=== PATIENT | male | born 1960 | race Caucasian/White ===

== ENCOUNTER 2017-04-27 15:34 | Emergency (ER) | payer MEDICARE, MEDICAID ==
[~2017-04-27] VITALS: Ht 190.5 cm; Wt 102.1 kg
[~2017-04-27 15:34] MED LIST: MIRT45TA; Pantoprazole Sodium Sesquihydr PO
[2017-04-27 17:15] VITALS: BP 142/84
[2017-04-27 18:00] LABS: Urine Bilirubin Negative (Negative); Urine Blood Negative /uL (Negative); Urine Color Yellow (Yellow); Urine Glucose Normal (Normal); Urine Ketone Negative (Negative); Urine Nitrite Negative (Negative); Urine RBC <1 /hpf (0 - 3); Urine Urobilinogen Normal (Negative); Urine pH 6.5 (5.0-8.0)
== END 2017-04-27 18:37 | disposition home or self-care (01) ==
LOC: ER 15:39
DX: N43.3 Hydrocele, unspecified (principal); K21.9 Gastro-esophageal reflux disease without esophagitis; I10 Essential (primary) hypertension; Z87.442 Personal history of urinary calculi; Z98.890 Other specified postprocedural states; Z88.8 Allergy status to other drugs, medicaments and biological substances
CPT/HCPCS: 76870; 81001

== ENCOUNTER → 2020-05-08 | Outpatient (CLI) | payer MEDICARE, MEDICAID ==
[2020-05-08 12:45] LABS: Basophils # (auto) 0.1 10 ^3/uL (0-0.2); Basophils % (auto) 2.4 % (0.0-2.0); Eosinophils # (auto) 0.1 10 ^3/uL (0-0.8); Hematocrit 51.5 % (41.0-53.0); Hemoglobin 16.9 g/dL (13.5-17.5); Lymphocytes # (auto) 2.8 10 ^3/uL (0.4-5.4); Lymphocytes % (auto) 44.8 % (10.0-50.0); Mean Corpuscular Hemoglobin 30.1 pg (28.0-32.0); Mean Corpuscular Hgb Conc. 32.8 g/dL (32.0-36.0); Mean Corpuscular Volume 91.6 fL (80.0-100.0); Monocytes # (auto) 0.6 10 ^3/uL (0-1.3); Monocytes % (auto) 10.4 % (0.0-12.0); Neutrophils # (auto) 2.6 10 ^3/uL (1.6-8.6); Neutrophils % (auto) 41.4 % (37.0-80.0); Platelet Count (auto) 368 10^3/uL (140-450); Red Blood Cells 5.62 10^6/uL (4.5-5.90); Red Cell Distribution Width 14.4 % (11.8-14.3); White Blood Cell 6.2 10^3/uL (4.4-10.8)
[2020-05-08 12:57] LABS: BUN/Creatinine Ratio 7.5; Calcium 9.3 mg/dL (8.5-10.1)
[2020-05-08 12:58] LABS: INR 0.98 (0.9-1.15)
[2020-05-08 13:01] LABS: Bilirubin, Total 0.4 mg/dL (0.2-1.0)
[2020-05-08 13:06] LABS: Free T4 (Free Thyroxine) 1.11 ng/dL (0.89-1.76); Prostate Specific Antigen 0.96 ng/mL (0.0-4.0)
== END | disposition home or self-care (01) ==
LOC: LAB 12:09
PROVIDERS: ATTEND Internal Medicine
DX: Z01.811 Encounter for preprocedural respiratory examination (principal); K80.20 Calculus of gallbladder without cholecystitis without obstruction; I10 Essential (primary) hypertension; R06.02 Shortness of breath; Z12.5 Encounter for screening for malignant neoplasm of prostate; Z90.81 Acquired absence of spleen
CPT/HCPCS: 36415; 80053; 80061; 84153; 84439; 84443; 85025; 85610; 85652

== ENCOUNTER → 2021-07-26 | Outpatient (CLI) | payer MEDICARE, MEDICAID ==
[2021-07-26 14:31] LABS: Cholesterol 224 mg/dL (< 200); Triglycerides 222 mg/dL (< 150)
[2021-07-26 14:35] LABS: HDL Cholesterol 45 mg/dL (40-59); LDL Cholesterol 151 mg/dL (< 100)
== END | disposition home or self-care (01) ==
LOC: LAB 13:41
PROVIDERS: ATTEND Internal Medicine
DX: I10 Essential (primary) hypertension (principal); E78.00 Pure hypercholesterolemia, unspecified
CPT/HCPCS: 36415; 80061

== ENCOUNTER 2022-07-24 03:42 | Emergency (ER) | payer MEDICARE, MEDICAID | END 2022-07-24 04:35 | disposition left against medical advice (07) | LOC: ER 03:42 | DX: J01.90 Acute sinusitis, unspecified (principal); Z53.21 Procedure and treatment not carried out due to patient leaving prior to being seen by health care provider ==

== ENCOUNTER → 2023-09-19 | Outpatient (CLI) | payer MEDICARE, MEDICAID ==
[2023-09-19 12:06] LABS: Basophils # (auto) 0 10 ^3/uL (0-0.2); Basophils % (auto) 0.9 % (0.0-2.0); Eosinophils # (auto) 0 10 ^3/uL (0-0.8); Eosinophils % (auto) 0.2 % (0.0-7.0); Hematocrit 51.3 % (41.0-53.0); Hemoglobin 17.1 g/dL (13.5-17.5); Lymphocytes # (auto) 1.7 10 ^3/uL (0.4-5.4); Mean Corpuscular Hgb Conc. 33.3 g/dL (32.0-36.0); Mean Corpuscular Volume 90.4 fL (80.0-100.0); Monocytes # (auto) 0.6 10 ^3/uL (0-1.3); Monocytes % (auto) 11.6 % (0.0-12.0); Neutrophils # (auto) 2.9 10 ^3/uL (1.6-8.6); Neutrophils % (auto) 54.3 % (37.0-80.0); Nucleated Red Blood Cells % 0.1 %; Red Blood Cells 5.68 10^6/uL (4.5-5.90); Red Cell Distribution Width 14.5 % (11.8-14.3); White Blood Cell 5.3 10^3/uL (4.4-10.8)
[2023-09-19 12:09] LABS: Urine Bacteria NONE SEEN /hpf (None Seen); Urine Blood TRACE /uL (Negative); Urine Clarity Clear (Clear); Urine Color Yellow (Yellow); Urine Mucus FEW (None Seen); Urine Protein, UAD Negative (Negative); Urine Specific Gravity 1.024 (1.001-1.035); Urine Urobilinogen Normal (Negative); Urine WBC <1 /hpf (0 - 3)
[2023-09-19 12:35] LABS: Prostate Specific Antigen 1.13 ng/mL (0.0-4.0)
[2023-09-19 12:39] LABS: Alanine Aminotransferase 23 U/L (7-40); Albumin 4.7 g/dL (3.2-4.8); Alkaline Phosphatase 89 U/L (46-116); Anion Gap 8 (5-15); Aspartate Aminotransferase 17 U/L (13-40); BUN/Creatinine Ratio 11.7 (10.0-20.0); Blood Urea Nitrogen 14 mg/dL (9-23); Calcium 9.7 mg/dL (8.5-10.1); Carbon Dioxide 27 mmol/L (20-30); Chloride 104 mmol/L (98-107); Cholesterol 289 mg/dL (< 200); Free T4 (Free Thyroxine) 1.11 ng/dL (0.89-1.76); Glucose 111 mg/dL (74-106); HDL Cholesterol 49 mg/dL (40-59); LDL Cholesterol 229 mg/dL (< 100); Sodium 139 mmol/L (136-145)
[2023-09-19 12:40] LABS: Bilirubin, Total 0.5 mg/dL (0.2-1.0); Total Protein 7.6 g/dL (5.7-8.2)
[2023-09-19 13:04] LABS: Erythrocyte Sedimentation Rate 2 mm/hr (0-20)
[2023-09-19 13:15] LABS: Triglycerides 118 mg/dL (< 150)
== END | disposition home or self-care (01) ==
LOC: LAB 11:40
PROVIDERS: ATTEND Internal Medicine
DX: Z12.5 Encounter for screening for malignant neoplasm of prostate (principal); I10 Essential (primary) hypertension; R35.1 Nocturia
CPT/HCPCS: 36415; 80053; 80061; 81001; 84153; 84439; 84443; 85025; 85652

== ENCOUNTER → 2023-11-27 | Outpatient (CLI) | payer MEDICARE, MEDICAID ==
[2023-11-27 13:00] LABS: Alanine Aminotransferase 33 U/L (7-40); Aspartate Aminotransferase 28 U/L (13-40); Cholesterol 172 mg/dL (< 200); HDL Cholesterol 51 mg/dL (40-59); LDL Cholesterol 100 mg/dL (< 100); Triglycerides 154 mg/dL (< 150)
== END | disposition home or self-care (01) ==
LOC: LAB 12:16
PROVIDERS: ATTEND Internal Medicine
DX: E78.00 Pure hypercholesterolemia, unspecified (principal)
CPT/HCPCS: 36415; 80061; 84450; 84460

== ENCOUNTER → 2025-04-21 | Outpatient (CLI) | payer MEDICARE, MEDICAID ==
[2025-04-21 12:03] LABS: Prostate Specific Antigen 1.1 ng/mL (0.0-4.0)
[2025-04-21 12:04] LABS: Alanine Aminotransferase 12 U/L (7-40); Albumin 4.4 g/dL (3.2-4.8); Alkaline Phosphatase 88 U/L (46-116); Anion Gap 8 (5-15); BUN/Creatinine Ratio 9.6 (10.0-20.0); Blood Urea Nitrogen 10 mg/dL (9-23); Calcium 10.0 mg/dL (8.7-10.4); Carbon Dioxide 26 mmol/L (20-31); Chloride 106 mmol/L (98-107); Glucose 95 mg/dL (74-106); HDL Cholesterol 45 mg/dL (40-59); Potassium 4.0 mmol/L (3.5-5.1); Sodium 140 mmol/L (136-145); Total Protein 6.9 g/dL (5.7-8.2)
[2025-04-21 12:07] LABS: Free T4 (Free Thyroxine) 1.09 ng/dL (0.89-1.76)
[2025-04-21 12:20] LABS: Bilirubin, Total 0.3 mg/dL (0.2-1.0); Cholesterol 228 mg/dL (< 200); Triglycerides 237 mg/dL (< 150)
[2025-04-21 12:27] LABS: Urine Protein, UAD TRACE (Negative)
== END | disposition home or self-care (01) ==
LOC: LAB 11:11
PROVIDERS: ATTEND Internal Medicine
DX: I10 Essential (primary) hypertension (principal); K57.92 Diverticulitis of intestine, part unspecified, without perforation or abscess without bleeding; Z79.899 Other long term (current) drug therapy
CPT/HCPCS: 80053; 80061; 81001; 84153; 84439; 84443; 86141

== ENCOUNTER 2025-07-28 09:24 | Inpatient (IN) | payer MEDICARE, MEDICAID ==
[~2025-07-28] VITALS: Ht 190.5 cm; Wt 101.0 kg
--- NOTE | 2025-07-28 10:11 | ED.PDOC ---
GI ASSESSMENT HPI Comments 64 y/o M, with PMHx of GERD, HTN, and kidney stones presents to the ED for CC of abdominal pain. Patient states, he was sent by for admissions d/t possible necrotizing pancreatitis. Patient reports, to have been experiencing symptoms of abdominal pain with associated nausea, vomiting, and poor appetite. Patient further relays, he was previously seen at [facility] for SS and eloped from the facility d/t care x2days ago. From patient's paper work, it is reported that patient has a 7mm kidney stone in the right kidney and was Dx: with acute pancreatitis. Patient denies hematemesis, melena, fatigue, weakness, fever, palpations, or chest pain. No other associated symptoms, modifi ers, recent injuries or sick contacts are present at this time. Chief Complaint: Abdominal Pain Time Seen by MD: 09:45 Primary Care Provider: [place] Reviewed Notes: Nurses Notes, Medications, Allergies Allergies: Coded Allergies: Benzyl Alcohol (Verified Adverse Reaction, Severe, FACIAL TWITCHING, 11/04/10) Prochlorperazine (Verified Adverse Reaction, Severe, FACIAL TWITCHING, 11/04/10) Saccharin (Verified Adverse Reaction, Severe, FACIAL TWITCHING, 11/04/10) Home Meds Active Scripts [Pantoprazole Sodium Sesquihydr] 40 MG TB No Conflict Check, 40 MG PO BID, #60 Prov:ALAYNA FIGUEREDO MD 05/15/16 Reported Medications Mirtazapine (Mirtazapine Oral Disintegrating Tablet) 30 Mg Tab, TAB PO 07/28/25 Alfuzosin Hydrochloride (ALFUZOSIN HCL ER) 10 Mg Tab, 1 TAB PO DAILY 07/28/25 Losartan Potassium (Losartan Potassium) 100 Mg Tab, 1 TAB PO DAILY 07/28/25 Mirtazapine (Remeron) 45 Mg Tab, HS 06/22/12 Information Source: Patient Mode of Arrival: Ambulatory Timing: Weeks Duration: Since onset Prehospital treatment: None Vomitus: Watery Stool: Normal Severity: Moderate Recent: None Recent Hx of: None Pain Location: Diffuse Modifying Factors: Nothing Associated sign and symptoms: Nausea, Vomiting, Abdominal Pain Past Medical History PAST MEDICAL HISTORY: GERD, HTN, Kidney Stones Family History Family History: Unobtainable Social History Smoker: Non-Smoker Alcohol: Occasionally Drugs: Denies Drug Use Lives In: Home Constitutional: denies: chills, diaphoresis, fatigue, fever, malaise, sweats, weakness, others EENTM: denies: blurred vision, double vision, ear bleeding, ear discharge, ear drainage, ear pain, ear ringing, eye pain, eye redness, hearing loss, mouth pain, mouth swelling, nasal discharge, nose bleeding, nose congestion, nose pain, photophobia, tearing, throat pain, throat swelling, voice changes, others Respiratory: denies: cough, hemoptysis, orthopnea, SOB at rest, shortness of breath, SOB with excertion, stridor, wheezing, others Cardiovascular: denies: chest pain, dizzy spells, diaphoresis, Dyspnea on exertion, edema, irregular heart beat, left arm pain, lightheadedness, palpitations, PND, syncope, others Gastrointestinal: reports: abdominal pain, nausea, vomiting; denies: abdomen distended, blood streaked bowels, constipated, diarrhea, dysphagia, difficulty swallowing, hematemesis, melena, poor appetite, poor fluid intake, rectal bleeding, rectal pain, others Genitourinary: denies: burning, dysuria, flank pain, frequency, hematuria, incontinence, penile discharge, penile sore, pain, testicle pain, testicle swelling, urgency, others Neurological: denies: dizziness, fainting, headache, left sided numbness, left sided weakness, numbness, paresthesia, pre-existing deficit, right sided numbness, right sided weakness, seizure, speech problems, tingling, tremors, weakness, others Musculoskeletal: denies: back pain, gout, joint pain, joint swelling, muscle pain, muscle stiffness, neck pain, others Integumetry: denies: bruises, change in color, change in hair/nails, dryness, laceration, lesions, lumps, rash, wounds, others Allergic/Immunocompromised: denies: Difficulty Healing, Frequent Infections, Hives, Itching, others Hematologic/Lymphatic: denies: anemia, blood clots, easy bleeding, easy bruising, swollen glands, others Endocrine: denies: excessive hunger, excessive sweating, excessive thirst, excessive urination, flushing, intolerance to cold, intolerance to heat, unexplained weight gain, unexplained weight loss, others Psychiatric: denies: anxiety, bipolar disorder, depression, hopeless, panic disorder, schizophrenia, sleepless, suicidal, others All Other Systems: Reviewed and Negative Physical Exam General Appearance: No Apparent Distress, Normal HEENT: Normal ENT Inspection, Pharynx Normal Neck: Full Range of Motion, Non-Tender, Normal, Normal Inspection Respiratory: Chest Non-Tender, Lungs Clear, No Accessory Muscle Use, No Respiratory Distress, Normal Breath Sounds Cardiovascular: No Edema, No Murmur, No Gallop, Normal Peripheral Pulses, Regular Rate/Rhythm Breast Exam: Deferred Gastrointestinal: No Organomegaly, Non Tender, No Pulsatile Mass, Normal Bowel Sounds, Soft Genitalia: Deferred Pelvic: Deferred Rectal: Deferred Extremities: No calf tenderness, Normal capillary refill, Normal inspection, Normal range of motion, Non-tender, No pedal edema Musculoskeletal : Apperance: Normal Neurologic: Alert, slag skimmer II-XII nml as Tested, No Motor Deficits, Normal Affect, Normal Mood, No Sensory Deficits Cerebellar Function: Normal Reflexes: Normal Skin: Dry, Normal Color, Warm Lymphatic: No Adenopathy EKG EKG : Pulse Rate (adult): 86 [place]: Normal Cardiac Rhythm: NSR Block: None Hypertrophy: LAE ST: Normal Was a procedure done? Was a procedure done?: No GI differential Dx Differential Diagnosis: Pancreatitis, Urolithiasis X-Ray, Labs, Meds, VS Vital Signs Date Time Temp Pulse Resp B/P (MAP) Pulse Ox O2 Delivery O2 Flow Rate FiO2 07/28/25 10:12 86 07/28/25 09:35 86 07/28/25 09:24 99.1 91 18 157/89 95 99.1 Lab Test 07/28/25 09:48 Range/Units White Blood Count 12.5 H 4.4-10.8 10^3/uL Red Blood Count 5.04 4.5-5.90 10^6/uL Hemoglobin 15.1 13.5-17.5 g/dL Hematocrit 45.1 41.0-53.0 % Mean Corpuscular Volume 89.5 80.0-100.0 fL Mean Corpuscular Hemoglobin 29.9 28.0-32.0 pg Mean Corpuscular Hemoglobin Concent 33.4 32.0-36.0 g/dL Red Cell Distribution Width 13.9 11.8-14.3 % Platelet Count 285 140-450 10^3/uL Mean Platelet Volume 7.4 6.9-10.8 fL Neutrophils (%) (Auto) 79.0 37.0-80.0 % Lymphocytes (%) (Auto) 9.9 L 10.0-50.0 % Monocytes (%) (Auto) 10.5 0.0-12.0 % Eosinophils (%) (Auto) 0.3 0.0-7.0 % Basophils (%) (Auto) 0.3 0.0-2.0 % Neutrophils # (Auto) 9.9 H 1.6-8.6 10 ^3/uL Lymphocytes # (Auto) 1.2 0.4-5.4 10 ^3/uL Monocytes # (Auto) 1.3 0-1.3 10 ^3/uL Eosinophils # (Auto) 0 0-0.8 10 ^3/uL Basophils # (Auto) 0 0-0.2 10 ^3/uL Nucleated Red Blood Cells 0.1 % Sodium Level 142 136-145 mmol/L Potassium Level 3.3 L 3.5-5.1 mmol/L Chloride Level 104 98-107 mmol/L Carbon Dioxide Level 27 20-31 mmol/L Anion Gap 11 5-15 Blood Urea Nitrogen 10 9-23 mg/dL Creatinine 0.95 0.700-1.30 mg/dL Glomerular Filtration Rate Calc 90 >90 mL/min BUN/Creatinine Ratio 10.5 10.0-20.0 Serum Glucose 105 74-106 mg/dL Lactic Acid Level 1.0 0.4-2.0 mmol/L Calcium Level 9.0 8.7-10.4 mg/dL Total Bilirubin 0.7 0.2-1.0 mg/dL Direct Bilirubin 0.3 <0.3 mg/dL Aspartate Amino Transferase (AST) 54 H 13-40 U/L Alanine Aminotransferase (ALT) 36 7-40 U/L Alkaline Phosphatase 122 H 46-116 U/L Total Protein 6.6 5.7-8.2 g/dL Albumin 4.0 3.2-4.8 g/dL Lipase 28 12-53 U/L CA 19-9 Antigen <2 0-35 U/mL Microbiology Date/Time Source Procedure Growth Status 07/28/25 09:52 Blood Blood Culture - Preliminary NO GROWTH AFTER 48 HOURS OF INCUBATION. Resulted 07/28/25 09:47 Blood Blood Culture - Preliminary NO GROWTH AFTER 48 HOURS OF INCUBATION. Resulted Time of 1ST Reevaluation: 10:15 Reevaluation 1ST: Unchanged Patient Education/Counseling: Diagnosis, Treatment Family Education/Counseling: No Family Present SEPSIS Sepsis Screen Date sepsis recognized/suspect: Jul 28, 2025 Time Sepsis recognized/suspect: 925 Recent Procedure: No Respiratory Rate >20: No Heart Rate >90: Yes Temp<36 C (96.8 F) or >38.3 C: No SBP <90 or MAP <65 mmHG: No New Acute Mental Status Change: No Is the patient on CPAP, BIPAP,: No Physician Orders Ct Ab Pel With Iv Con Only (07/28/25 10:20) Blood Culture (07/28/25 10:22) Electrocardigram (07/28/25 10:23) Vital Signs Date Time Temp Pulse Resp B/P (MAP) Pulse Ox O2 Delivery O2 Flow Rate FiO2 07/28/25 10:12 86 07/28/25 09:35 86 07/28/25 09:24 99.1 91 18 157/89 95 99.1 Laboratory Tests Test 07/28/25 09:48 Lactic Acid Level 1.0 mmol/L (0.4-2.0) White Blood Count 12.5 10^3/uL (4.4-10.8) H Departure 1 Departure Time of Disposition: 05:09 (Patient presented with abdominal pain that was concerning for possible appendicits, gastritis, cholecystitis, colitis, gastroenteritis, sbo, or orther possible surgical emergency. Data: 1. I ordered and reviewed the result of at least 3 labs including a CBC, BMP, and Urinalysis. 2. I independently interpreted the following tests: CT Abdomen and Pelvis is concerning for necrotizing pancreatitis .Risk:This patient has a high risk of morbidity due to further diagnostic testing or treatment and may suffer from an acute abdominal process disorder. Workup reveals necrotizing pancreatitis and patient should be admitted for further workup. and possible expert consultation. ) Impression: Primary Impression: Acute necrotizing pancreatitis Additional Impression: Intractable abdominal pain Disposition: 09 ADMITTED INPATIENT Admit to: Med Surg Condition: Serious Critical Care Note Critical Care Time?: Yes Critical care comment: Intractable abdominal pain Authorized and Performed by: Ariel Hudson MD Total critical care time: Approximately 39 minutes Due to a high probability of clinically significant, life threatening deterioration, the patient required my highest level of preparedness to intervene emergently and I personally spent this critical care time directly and personally managing the patient. This critical care time included obtaining a history; examining the patient; pulse oximetry; ordering and review of studies; arranging urgent treatment with development of a management plan; evaluation of patient's response to treatment; frequent reassessment; and, discussions with other providers. This critical care time was performed to assess and manage the high probability of imminent, life-threatening deterioration that could result in multi-organ failure. It was exclusive of separately billable procedures and treating other patients and teaching time. Please see my other sections and the rest of the note for further information on patient assessment and treatment. Stability Stability form required: No Heart Score Heart Score: Heart Score Response (Comments) Value History N/A 0 EKG N/A 0 Age N/A 0 Risk Factors N/A 0 Troponin N/A 0 Total 0 I personally scribed for ARIEL HUDSON MD ([email or web address]) on 07/28/25 at 10:11. Electronically submitted by Hailey Gaspar ([email or web address]). I personally scribed for ARIEL HUDSON MD ([email or web address]) on 07/28/25 at 10:12. Electronically submitted by Hailey Gaspar ([email or web address]). ARIEL HUDSON MD Jul 28, 2025 10:11
--- NOTE | 2025-07-28 10:26 | ECG ---
[facility] Test Date: 2025-07-28 Test Time: 09:35:33 Pat Name: NEW MAHMOOD Department: ED Room: 0212 Gender: M Crystallographer: RACHANA : 1960 Requested By: ARIEL GODOY Order Number: [id number] Reading MD: Oscar Roger Measurements Intervals [place] Rate: 86 P: 49 CO: 153 QRS: 2 QRSD: 107 T: 58 QT: 392 QTc: 469 Interpretive Statements Sinus rhythm Probable left atrial enlargement RSR' in V1 or V2, probably normal variant Electronically Signed On 07-30-2025 20:36:06 PDT by Oscar Roger Please click the below link to view image of tracing.
[2025-07-28 10:27] LABS: Hematocrit 45.1 % (41.0-53.0); Hemoglobin 15.1 g/dL (13.5-17.5); Mean Corpuscular Hemoglobin 29.9 pg (28.0-32.0); Mean Corpuscular Volume 89.5 fL (80.0-100.0); Nucleated Red Blood Cells % 0.1 %
[2025-07-28 10:36] LABS: Anion Gap 11 (5-15); Carbon Dioxide 27 mmol/L (20-31); Chloride 104 mmol/L (98-107); Sodium 142 mmol/L (136-145)
[2025-07-28 10:44] LABS: Potassium 3.3 mmol/L (3.5-5.1)
[2025-07-28 11:01] LABS: BUN/Creatinine Ratio 10.5 (10.0-20.0); Blood Urea Nitrogen 10 mg/dL (9-23)
[2025-07-28 11:02] LABS: Calcium 9.0 mg/dL (8.7-10.4); Glucose 105 mg/dL (74-106)
[2025-07-28 12:10] LABS: Albumin 4.0 g/dL (3.2-4.8); Bilirubin, Total 0.7 mg/dL (0.2-1.0); Lipase 28.0 U/L (12-53); Total Protein 6.6 g/dL (5.7-8.2)
[2025-07-28 12:11] LABS: Alkaline Phosphatase 122.0 U/L (46-116)
--- NOTE | 2025-07-28 12:21 | DVH ---
Exam: CT CT AB PEL WITH IV CON ONLY History: abdominal pain, necrotizing pancreatitis COMPARISON: None Technique: Multidetector spiral CT of the abdomen and pelvis was performed from lung bases to pubic s ymphysis. Intravenous contrast was administered during this examination. Portal venous imaging was o btained. Axial, coronal and sagittal multiplanar reformats were performed by the technologist on a [employer] workstation. Radiation Dose : 1. Abdomen/Pelvis: CTDIvol 13.32 mGy, DLP 702.15 mGy*cm. CONTRAST: Type of contrast: Omnipaque 350 Contrast injected: 100 ml Findings: Lung Bases: Trace bilateral pleural effusions with bibasilar atelectatic changes. Liver: The liver is normal in size. No focal lesions. Normal hepatic vascular enhancement. Gallbladder and biliary Tree: Unremarkable Spleen: Multiple small splenules. Pancreas: Heterogeneous enlargement of the pancreatic head, neck, uncinate process, and body. Multipl e areas of diminished enhancement throughout the pancreatic neck, head, and uncinate process. Mild to moderate generalized peripancreatic edema. No focal fluid collections. Adrenal Glands: Unremarkable Kidneys: Nonobstructing right middle renal calculus measuring 6 mm. No hydronephrosis. Bladder: Unremarkable Bowel: The stomach is grossly normal in appearance. Small bowel and colon are normal in caliber and d istribution. The appendix is not visualized; however, no secondary findings of acute appendicitis terry ntified. Colonic diverticulosis. Ascites: Absent Lymphadenopathy: No mesenteric, retroperitoneal or periportal lymphadenopathy. Abdominal wall and Mesentery: Unremarkable. Vasculature: SMV appears slightly attenuated as of course through the pancreas. No clear thrombus is seen however. Pelvic Organs: Unremarkable Musculoskeletal: No aggressive focal bony lesions, acute fractures or dislocation. IMPRESSION: Findings are consistent with necrotizing pancreatitis with diminished enhancement throughout the head , uncinated process, and neck. Radiation optimization: All CT scans at this facility use at least one of these dose optimization chris hniques: automated exposure control mA and/or kV adjustment per patient size (includes targeted exam s where dose is matched to clinical indication) or iterative reconstruction.
[2025-07-28 12:24] LABS: Alanine Aminotransferase 36.0 U/L (7-40); Bilirubin, Direct 0.3 mg/dL (<0.3)
--- NOTE | 2025-07-28 12:58 | DVHHP2 ---
History of Present Illness Reason for Visit: Abdominal pain History of Present Illness Shine Parry is a 64-year-old male with past medical history of appendectomy, splenectomy, closed head injury in 1988, bilateral knee surgery, GERD, hypertension, and nephrolithiasis who presents to the ED with abdominal pain, nausea, vomiting, and poor appetite that started 2 weeks ago. Patient reports that he has not been eating since last Friday. He reports that the abdominal pain is 10/10 burning and constant. He also reports that there are no triggering or alleviating factors. Patient reported that this morning he took 2 (500mg) of Tylenol to help with the pain. Patient reports that he was advised by his PCP Dr. Cristino Powell to come in immediately this morning. Patient reports that he was recently at [facility] 2 days ago was told that he needed emergent surgery for his kidney stone in the right side, which never happened so he left AMA. Patient brought in documents from [facility] where he got an MRCP which shows that he has a 7 mm nonobstructing right kidney stone. Patient also reports that while he was at [facility] he was advised not to eat or drink anything. Patient denies any recent trauma or injury, recent sick contacts, recent ingestion of spoiled food, recent travels, chest pain, shortness of breath, fever, chills, lightheadedness, weakness, dizziness, diarrhea, or urinary symptoms. Cardiovascular: HTN GI: GERD Past Medical History Nephrolithiasis Past Surgical History: Appendectomy, Other (Splenectomy and bilateral knee surgery) Family History: None Smoke: No ALCOHOL: none Drugs: None Lives: Alone Domestic Violence: Neg Review of Systems Gastrointestinal: Nausea, Vomiting, Abdominal Pain Allergies: Coded Allergies: Benzyl Alcohol (Verified Adverse Reaction, Severe, FACIAL TWITCHING, 11/04/10) Prochlorperazine (Verified Adverse Reaction, Severe, FACIAL TWITCHING, 11/04/10) Saccharin (Verified Adverse Reaction, Severe, FACIAL TWITCHING, 11/04/10) Exam Vital Signs Vital Signs Date Time Temp Pulse Resp B/P (MAP) Pulse Ox O2 Delivery O2 Flow Rate FiO2 07/28/25 10:12 86 07/28/25 09:24 99.1 18 157/89 95 99.1 General Appearance: Alert, Oriented X3, Cooperative, No acute distress HEENT: Atraumatic, PERRLA, EOMI, Mucous membr. moist/pink Respiratory: Normal air movement Cardiovascular: Regular rate, Normal S1, Normal S2 Abdominal: Soft Extremities: No clubbing, No cyanosis Neuro: Normal gait, Normal speech, Strength at 5/5 X4 ext, Normal tone, Sensation intact Psych/Mental Status: Mental status NL, Mood NL Labs/Xrays Labs Test 07/28/25 09:48 Range/Units White Blood Count 12.5 H 4.4-10.8 10^3/uL Red Blood Count 5.04 4.5-5.90 10^6/uL Hemoglobin 15.1 13.5-17.5 g/dL Hematocrit 45.1 41.0-53.0 % Mean Corpuscular Volume 89.5 80.0-100.0 fL Mean Corpuscular Hemoglobin 29.9 28.0-32.0 pg Mean Corpuscular Hemoglobin Concent 33.4 32.0-36.0 g/dL Red Cell Distribution Width 13.9 11.8-14.3 % Platelet Count 285 140-450 10^3/uL Mean Platelet Volume 7.4 6.9-10.8 fL Neutrophils (%) (Auto) 79.0 37.0-80.0 % Lymphocytes (%) (Auto) 9.9 L 10.0-50.0 % Monocytes (%) (Auto) 10.5 0.0-12.0 % Eosinophils (%) (Auto) 0.3 0.0-7.0 % Basophils (%) (Auto) 0.3 0.0-2.0 % Neutrophils # (Auto) 9.9 H 1.6-8.6 10 ^3/uL Lymphocytes # (Auto) 1.2 0.4-5.4 10 ^3/uL Monocytes # (Auto) 1.3 0-1.3 10 ^3/uL Eosinophils # (Auto) 0 0-0.8 10 ^3/uL Basophils # (Auto) 0 0-0.2 10 ^3/uL Nucleated Red Blood Cells 0.1 % Sodium Level 142 136-145 mmol/L Potassium Level 3.3 L 3.5-5.1 mmol/L Chloride Level 104 98-107 mmol/L Carbon Dioxide Level 27 20-31 mmol/L Anion Gap 11 5-15 Blood Urea Nitrogen 10 9-23 mg/dL Creatinine 0.95 0.700-1.30 mg/dL Glomerular Filtration Rate Calc 90 >90 mL/min BUN/Creatinine Ratio 10.5 10.0-20.0 Serum Glucose 105 74-106 mg/dL Lactic Acid Level 1.0 0.4-2.0 mmol/L Calcium Level 9.0 8.7-10.4 mg/dL Total Bilirubin 0.7 0.2-1.0 mg/dL Direct Bilirubin 0.3 <0.3 mg/dL Aspartate Amino Transferase (AST) 54 H 13-40 U/L Alanine Aminotransferase (ALT) 36 7-40 U/L Alkaline Phosphatase 122 H 46-116 U/L Total Protein 6.6 5.7-8.2 g/dL Albumin 4.0 3.2-4.8 g/dL Lipase 28 12-53 U/L Exam: CT CT AB PEL WITH IV CON ONLY History: abdominal pain, necrotizing pancreatitis COMPARISON: None Technique: Multidetector spiral CT of the abdomen and pelvis was performed from lung bases to pubic symphysis. Intravenous contrast was administered during this examination. Portal venous imaging was obtained. Axial, coronal and sagittal multiplanar reformats were performed by the technologist on a separate workstation. Radiation Dose : 1. Abdomen/Pelvis: CTDIvol 13.32 mGy, DLP 702.15 mGy*cm. CONTRAST: Type of contrast: Omnipaque 350 Contrast injected: 100 ml Findings: Lung Bases: Trace bilateral pleural effusions with bibasilar atelectatic changes. Liver: The liver is normal in size. No focal lesions. Normal hepatic vascular enhancement. Gallbladder and biliary Tree: Unremarkable Spleen: Multiple small splenules. Pancreas: Heterogeneous enlargement of the pancreatic head, neck, uncinate process, and body. Multiple areas of diminished enhancement throughout the pancreatic neck, head, and uncinate process. Mild to moderate generalized peripancreatic edema. No focal fluid collections. Adrenal Glands: Unremarkable Kidneys: Nonobstructing right middle renal calculus measuring 6 mm. No hydronephrosis. Bladder: Unremarkable Bowel: The stomach is grossly normal in appearance. Small bowel and colon are normal in caliber and distribution. The appendix is not visualized; however, no secondary findings of acute appendicitis identified. Colonic diverticulosis. Ascites: Absent Lymphadenopathy: No mesenteric, retroperitoneal or periportal lymphadenopathy. Abdominal wall and Mesentery: Unremarkable. Vasculature: SMV appears slightly attenuated as of course through the pancreas. No clear thrombus is seen however. Pelvic Organs: Unremarkable Musculoskeletal: No aggressive focal bony lesions, acute fractures or dislocation. IMPRESSION: Findings are consistent with necrotizing pancreatitis with diminished enhancement throughout the head, uncinated process, and neck. SEPSIS Sepsis Screen Date sepsis recognized/suspect: Jul 28, 2025 Time Sepsis recognized/suspect: 925 Recent Procedure: No Respiratory Rate >20: No Heart Rate >90: Yes Temp<36 C (96.8 F) or >38.3 C: No SBP <90 or MAP <65 mmHG: No New Acute Mental Status Change: No Is the patient on CPAP, BIPAP,: No Physician Orders Urinalysis (07/28/25 09:29) Ct Ab Pel With Iv Con Only (07/28/25 10:20) Blood Culture (07/28/25 10:22) Morphine Sulfate Injection (07/28/25 12:45) Ondansetron Hcl (Zofran) (07/28/25 12:45) Sodium Chloride 0.9% (07/28/25 12:45) Vital Signs Date Time Temp Pulse Resp B/P (MAP) Pulse Ox O2 Delivery O2 Flow Rate FiO2 07/28/25 10:12 86 07/28/25 09:35 86 07/28/25 09:24 99.1 91 18 157/89 95 99.1 Laboratory Tests Test 07/28/25 09:48 Lactic Acid Level 1.0 mmol/L (0.4-2.0) White Blood Count 12.5 10^3/uL (4.4-10.8) H Assessment/Plan Assessment/Plan Assessment Intractable abdominal pain likely due to necrotizing pancreatitis Leukocytosis likely due to necrotizing pancreatitis Hypokalemia Transaminitis 7 mm nonobstructing right kidney stone on patient's MRCP report History of GERD History of hypertension History of nephrolithiasis History of appendectomy History of splenectomy History of closed head injury 1988 History of bilateral knee surgery Plan Admit to med surge Antiemetics Pain management Replete lytes CT abdomen and pelvis noted NS 1 L given ED EKG Lipase level Blood cultures Lactic level noted Hepatic panel UA UDS IV antibiotics-meropenem NPO IV fluids Home medications reconciled DVT prophylaxis-SCDs PUD prophylaxis-PPIs Discussed plan of care with patient and nurse General surgery consulted - ED MD spoke with Dr. Wilcox [id number] Preventive counseling healthy eating habits, physical activity, and regular checkups Plan discussed with: Patient Date of Service: Jul 28, 2025 Billing Provider: ALEXSANDER DUMONT Common Visit Codes: 55266-[id number] INP/OBS CARE (HIGH) Secondary Visit Codes: [id number] COUNSELING IND ALEXSANDER DUMONT Jul 28, 2025 12:58
[2025-07-28] MEDS ORDERED: ACETAMINOPHEN 325 MG TAB PO PRN (13:15)
[2025-07-28] MEDS ORDERED: PANTOPRAZOLE 40 MG/10 ML VIAL INJ IV SCH (13:15)
[2025-07-28] MEDS ORDERED: ONDANSETRON HCL 4 MG/2 ML VIAL IV PRN (13:15)
[2025-07-28] MEDS ORDERED: MORPHINE SULFATE 4 MG/ML SYR/VIAL IV PRN (13:45)
[2025-07-28] MEDS: MORPHINE SULFATE 4 MG/ML SYR/VIAL IV ONE (14:43)
[2025-07-28] MEDS: POTASSIUM CHL 20 Meq TABLET PO ONE (14:44)
[2025-07-28] MEDS: PANTOPRAZOLE 40 MG/10 ML VIAL INJ IV SCH (14:44)
[2025-07-28] MEDS: MEROPENEM 1GM IVPB 50 ML IV SCH (14:44)
[2025-07-28] MEDS: ONDANSETRON HCL 4 MG/2 ML VIAL IV ONE (14:44)
[2025-07-28] MEDS: SODIUM CHLORIDE 0.9% 1,000 ML IV ONE (14:45)
[2025-07-28] MEDS: IOHEXOL 300 MG/ML 100ML BOTTLE IJ ONE (14:45)
[2025-07-28 15:06] VITALS: PULSE 90; RESP 17; O2SAT 97
[2025-07-28] MEDS: SODIUM CHLORIDE 0.9% 1,000 ML IV SCH (15:13)
[2025-07-28] MEDS ORDERED: ALFU1TAB15 PO (15:30)
[2025-07-28] MEDS ORDERED: MIRT1TAB39 PO (15:30)
[2025-07-28] MEDS ORDERED: LOSA-535 PO (15:30)
[2025-07-28] MEDS: TAMSULOSIN HYDROCHLORIDE 0.4 MG CAP PO SCH (18:55)
[2025-07-28 19:00] VITALS: PULSE 81; RESP 22; O2SAT 94
[2025-07-28 21:43] LABS: Urine Protein, UAD 1+ (Negative)
[2025-07-28 21:51] LABS: Amphetamine Screen, Urine Neg (NEGATIVE); Barbiturate Scree,Urine Neg (NEGATIVE); Benzodiazephine Screen, Urine Neg (NEGATIVE); Cannabinoid Screen, Urine Neg (NEGATIVE); Cocaine Screen, Urine Neg (NEGATIVE); Opiate Scree,Urine Pos (NEGATIVE); Phencyclidine Screen, Urine Neg (NEGATIVE)
[2025-07-28] MEDS ORDERED: PANTOPRAZOLE SODIUM SESQUIHYDR PO SCH (22:00)
--- NOTE | 2025-07-28 22:28 | DVHINCON2 ---
Consultation - Surgical Date Seen: Jul 28, 2025 Referring Physician Reason for Consultation Necrotizing pancreatitis History of Present Illness History of Present Illness Mr. Oliva is a 64-year-old male who presented to the ED due to epigastric abdominal pain that radiates to the back. Pain has been present since Friday, and on Friday he presented to [facility] and was found to have necrotizing pancreatitis. Patient left AMA from [place], when home but could not tolerate the pain, so he decided to call his PCP and PCP advised him to come to the hospital. Patient continues to have the abdominal pain and states he has not been eating since Friday due to the pain. Denies any nausea or vomiting. Has a associated subjective fevers. He has had pancreatitis in the past, 1 year ago. Denies any weight loss, acholic stools, yellowing of eyes. Past Medical/Surgical History Past Medical/Surgical History PMH pancreatitis, TBI, basilar skull fracture PSH laparoscopic appendectomy, exploratory laparotomy with splenectomy Family and Social History Family and Social History Family history noncontributory Allergies and medications Allergies: Coded Allergies: Benzyl Alcohol (Verified Adverse Reaction, Severe, FACIAL TWITCHING, 11/04/10) Prochlorperazine (Verified Adverse Reaction, Severe, FACIAL TWITCHING, 11/04/10) Saccharin (Verified Adverse Reaction, Severe, FACIAL TWITCHING, 11/04/10) Home Meds Active Scripts [Pantoprazole Sodium Sesquihydr] 40 MG TB No Conflict Check, 40 MG PO BID, #60 Prov:ALAYNA FIGUEREDO MD 05/15/16 Reported Medications Mirtazapine (Mirtazapine Oral Disintegrating Tablet) 30 Mg Tab, TAB PO 07/28/25 Alfuzosin Hydrochloride (ALFUZOSIN HCL ER) 10 Mg Tab, 1 TAB PO DAILY 07/28/25 Losartan Potassium (Losartan Potassium) 100 Mg Tab, 1 TAB PO DAILY 07/28/25 Mirtazapine (Remeron) 45 Mg Tab, HS 06/22/12 Review of systems Review of Systems: Deferred Examination Vital signs Vital Signs Date Time Temp Pulse Resp B/P (MAP) Pulse Ox O2 Delivery O2 Flow Rate FiO2 07/28/25 19:00 81 22 94 Room Air* 0 21 07/28/25 19:00 168/99 (122) 07/28/25 15:14 98.9 98.9 Medications Current Medications Medications (Trade) Dose Ordered Sig/Efrain Route PRN Reason Start Time Stop Time Status Last Admin Meropenem 50 ml @ 17 mls/hr Q8HR IV 07/28/25 14:00 07/28/25 14:44 Sodium Chloride 1,000 ml @ 100 mls/hr Q10H IV 07/28/25 13:15 07/28/25 15:13 Acetaminophen/ Hydrocodone Bitart ([place] 5/325MG Tab) 1 tab Q4HP PRN PO MODERATE PAIN (4-6 PAIN SCALE) 07/28/25 13:15 Ondansetron HCl (Zofran) 4 mg Q4HP PRN IV NAUSEA / VOMITING 07/28/25 13:15 Acetaminophen (Tylenol Tablet) 650 mg Q6HP PRN PO PAIN SCALE 1-3 OR TEMP>100.4 07/28/25 13:15 Morphine Sulfate 2 mg Q4HPRN PRN IV SEVERE PAIN (7-10 PAIN SCALE) 07/28/25 13:45 Pantoprazole Sodium (Protonix) 40 mg DAILY IV 07/28/25 13:15 UNV Pantoprazole Sodium (Protonix) 40 mg DAILY IV 07/28/25 13:30 07/28/25 14:44 Patient Own Medication 40 mg BID PO 07/28/25 22:00 UNV Patient Own Medication 1 tab DAILY PO 07/29/25 10:00 Future Hold Patient Own Medication 1 tab DAILY PO 07/29/25 10:00 UNV Mirtazapine (Remeron Tablet) 45 mg HS PO 07/28/25 22:00 Hydralazine HCl (Apresoline Injection) 10 mg Q6HP PRN IV SBP>150 07/28/25 15:45 Pantoprazole Sodium (Protonix Tablet) 40 mg BID PO 07/28/25 22:00 Losartan Potassium (Cozaar Tablet) 100 mg DAILY PO 07/29/25 10:00 Tamsulosin HCl (Flomax) 0.4 mg QPM PO 07/28/25 18:00 07/28/25 18:55 Laboratory Labs Test 07/28/25 21:00 07/28/25 09:48 Range/Units Urine Color Yellow Yellow Urine Clarity Clear Clear Urine pH 6.0 5.0-9.0 Urine Specific [place] 1.043 H 1.001-1.035 Urine Protein 1+ H Negative Urine Ketones 2+ H Negative Urine Blood 1+ H Negative /uL Urine Nitrite Negative Negative Urine Bilirubin Negative Negative Urine Urobilinogen Normal Negative mg/dL Urine Leukocyte Esterase Negative Negative /uL Urine RBC 6 0 - 3 /hpf Urine Microscopic WBC 2 0-3 /HPF Urine Squamous Epithelial Cells Few <5 /hpf Urine Bacteria None seen None Seen /hpf Urine Glucose Normal Normal mg/dL Urine Opiates Screen Pos NEGATIVE Urine Fentanyl Screen Neg NEGATIVE Urine Barbiturates Screen Neg NEGATIVE Urine Phencyclidine Screen Neg NEGATIVE Urine Amphetamines Screen Neg NEGATIVE Urine Benzodiazepines Screen Neg NEGATIVE Urine Cocaine Screen Neg NEGATIVE Urine Cannabinoids Screen Neg NEGATIVE White Blood Count 12.5 H 4.4-10.8 10^3/uL Red Blood Count 5.04 4.5-5.90 10^6/uL Hemoglobin 15.1 13.5-17.5 g/dL Hematocrit 45.1 41.0-53.0 % Mean Corpuscular Volume 89.5 80.0-100.0 fL Mean Corpuscular Hemoglobin 29.9 28.0-32.0 pg Mean Corpuscular Hemoglobin Concent 33.4 32.0-36.0 g/dL Red Cell Distribution Width 13.9 11.8-14.3 % Platelet Count 285 140-450 10^3/uL Mean Platelet Volume 7.4 6.9-10.8 fL Neutrophils (%) (Auto) 79.0 37.0-80.0 % Lymphocytes (%) (Auto) 9.9 L 10.0-50.0 % Monocytes (%) (Auto) 10.5 0.0-12.0 % Eosinophils (%) (Auto) 0.3 0.0-7.0 % Basophils (%) (Auto) 0.3 0.0-2.0 % Neutrophils # (Auto) 9.9 H 1.6-8.6 10 ^3/uL Lymphocytes # (Auto) 1.2 0.4-5.4 10 ^3/uL Monocytes # (Auto) 1.3 0-1.3 10 ^3/uL Eosinophils # (Auto) 0 0-0.8 10 ^3/uL Basophils # (Auto) 0 0-0.2 10 ^3/uL Nucleated Red Blood Cells 0.1 % Sodium Level 142 136-145 mmol/L Potassium Level 3.3 L 3.5-5.1 mmol/L Chloride Level 104 98-107 mmol/L Carbon Dioxide Level 27 20-31 mmol/L Anion Gap 11 5-15 Blood Urea Nitrogen 10 9-23 mg/dL Creatinine 0.95 0.700-1.30 mg/dL Glomerular Filtration Rate Calc 90 >90 mL/min BUN/Creatinine Ratio 10.5 10.0-20.0 Serum Glucose 105 74-106 mg/dL Lactic Acid Level 1.0 0.4-2.0 mmol/L Calcium Level 9.0 8.7-10.4 mg/dL Total Bilirubin 0.7 0.2-1.0 mg/dL Direct Bilirubin 0.3 <0.3 mg/dL Aspartate Amino Transferase (AST) 54 H 13-40 U/L Alanine Aminotransferase (ALT) 36 7-40 U/L Alkaline Phosphatase 122 H 46-116 U/L Total Protein 6.6 5.7-8.2 g/dL Albumin 4.0 3.2-4.8 g/dL Lipase 28 12-53 U/L Examination: GENERAL:Normal, HEENT:Normal (No icterus), ABDOMEN:Abnormal (Distended, laparotomy scar well healed, soft, depressible, epigastric tenderness, no rebound, no guarding) Problem List/Assessment/Plan Problems: (1) Acute necrotizing pancreatitis Assessment and Plan Mr. Oliva is a 64-year-old male who presents to the ED with a acute necrotizing pancreatitis. Pancreatitis is likely due to gallstones. CT was reviewed and shows inflammatory changes surrounding the pancreas with some pancreatic parenchyma hypoattenuation, this is consistent with gallstone pancreatitis. CT also shows gallstones within the gallbladder lumen. No fluid collections identified on CT. Given that the pancreatitis due to gallstones, patient will benefit from laparoscopic cholecystectomy. I I spoke to the patient about my recommendation, wishes cholecystectomy during this admission versus electively. I explained to the patient that if we do not remove the gallbladder, he has a 80% chance of getting another pancreatitis episode in the following 2 months, per studies. Patient is very adamant about not having surgery. After hearing this I explained to the patient that pancreatitis episodes came fall in 3 different categories mild, moderate, severe and that severe pancreatitis carry high mortality risk. Patient was still adamant about no surgical intervention. 1. NPO 2. Aggressive fluid hydration with a goal urine output of 1 cc/kg per hour 3. Pain and nausea control 4. Avoid morphine and pancreatitis patient is, as this is known to constrict the sphincter of Oddi 5. Out of bed and ambulate 6. No role for antibiotics unless there is infected pancreatitis, this is not the case in this patient Plan discussed with Plan discussed with: Patient Visit Coding Surgery Date of Service if different f: Jul 28, 2025 Billing Provider: LIN GRIMES MD Surgery Visit Codes: 45314 - INP CONSULT <110 MIN LIN GRIMES MD Jul 28, 2025 22:28
--- NOTE | 2025-07-28 22:30 | DVHINCON2 ---
Date of service: Jul 28, [address] Fournier Reason for Consultation Pancreatis and abnormal finding GI tract imaging History of Present Illness Shine Parry is a 64-year-old male who presents to the ED with abdominal pain, nausea, vomiting, and poor appetite that started 2 weeks ago. Patient reports that he has not been eating since last Friday. He reports that the abdominal pain is 10/10 burning and constant. He also reports that there are no triggering or alleviating factors. Patient reported that this morning he took 2 (500mg) of Tylenol to help with the pain. Patient reports that he was advised by his PCP Dr. Cristino Powell to come in immediately this morning. Patient reports that he was recently at [facility] 2 days ago was told that he needed emergent surgery for his kidney stone in the right side, which never happened so he left AMA. Patient brought in documents from [facility] where he got an MRCP which shows that he has a 7 mm nonobstructing right kidney stone. Patient also reports that while he was at [facility] he was advised not to eat or drink anything. Past Medical History Cardiovascular: HTN GI: GERD Past Medical History Nephrolithiasis Past Surgical History Past Surgical History: Appendectomy, Other (Splenectomy and bilateral knee surgery) Family History: Family history: Blood disorder G8 FATHER Family history: Hypertension G8 BROTHER Family history: Suicide (situation) G8 BROTHER Prostate cancer G8 FATHER Family History Family History: None Social History Smoke: No ALCOHOL: none Drugs: None Lives: Alone Domestic Violence: Neg Allergies: Coded Allergies: Benzyl Alcohol (Verified Adverse Reaction, Severe, FACIAL TWITCHING, 11/04/10) Prochlorperazine (Verified Adverse Reaction, Severe, FACIAL TWITCHING, 11/04/10) Saccharin (Verified Adverse Reaction, Severe, FACIAL TWITCHING, 11/04/10) Home Meds Active Scripts [Pantoprazole Sodium Sesquihydr] 40 MG TB No Conflict Check, 40 MG PO BID, #60 Prov:ALAYNA FIGUEREDO MD 05/15/16 Reported Medications Mirtazapine (Mirtazapine Oral Disintegrating Tablet) 30 Mg Tab, TAB PO 07/28/25 Alfuzosin Hydrochloride (ALFUZOSIN HCL ER) 10 Mg Tab, 1 TAB PO DAILY 07/28/25 Losartan Potassium (Losartan Potassium) 100 Mg Tab, 1 TAB PO DAILY 07/28/25 Mirtazapine (Remeron) 45 Mg Tab, HS 06/22/12 Current Medications Current Medications Medications (Trade) Dose Ordered Sig/Efrain Route PRN Reason Start Time Stop Time Status Last Admin Meropenem 50 ml @ 17 mls/hr Q8HR IV 07/28/25 14:00 07/28/25 14:44 Sodium Chloride 1,000 ml @ 100 mls/hr Q10H IV 07/28/25 13:15 07/28/25 15:13 Acetaminophen/ Hydrocodone Bitart ([place] 5/325MG Tab) 1 tab Q4HP PRN PO MODERATE PAIN (4-6 PAIN SCALE) 07/28/25 13:15 Ondansetron HCl (Zofran) 4 mg Q4HP PRN IV NAUSEA / VOMITING 07/28/25 13:15 Acetaminophen (Tylenol Tablet) 650 mg Q6HP PRN PO PAIN SCALE 1-3 OR TEMP>100.4 07/28/25 13:15 Morphine Sulfate 2 mg Q4HPRN PRN IV SEVERE PAIN (7-10 PAIN SCALE) 07/28/25 13:45 Pantoprazole Sodium (Protonix) 40 mg DAILY IV 07/28/25 13:15 UNV Pantoprazole Sodium (Protonix) 40 mg DAILY IV 07/28/25 13:30 07/28/25 14:44 Patient Own Medication 40 mg BID PO 07/28/25 22:00 UNV Patient Own Medication 1 tab DAILY PO 07/29/25 10:00 Future Hold Patient Own Medication 1 tab DAILY PO 07/29/25 10:00 UNV Mirtazapine (Remeron Tablet) 45 mg HS PO 07/28/25 22:00 Hydralazine HCl (Apresoline Injection) 10 mg Q6HP PRN IV SBP>150 07/28/25 15:45 Pantoprazole Sodium (Protonix Tablet) 40 mg BID PO 07/28/25 22:00 Losartan Potassium (Cozaar Tablet) 100 mg DAILY PO 07/29/25 10:00 Tamsulosin HCl (Flomax) 0.4 mg QPM PO 07/28/25 18:00 07/28/25 18:55 Vital Signs Vital Signs Date Time Temp Pulse Resp B/P (MAP) Pulse Ox O2 Delivery O2 Flow Rate FiO2 07/28/25 19:00 81 22 94 Room Air* 0 21 07/28/25 19:00 168/99 (122) 07/28/25 15:14 98.9 98.9 Physical Exam General Appearance: Alert, Oriented X3, Cooperative, No acute distress HEENT: Atraumatic, PERRLA, EOMI, Mucous membr. moist/pink Respiratory: Normal air movement Cardiovascular: Regular rate, Normal S1, Normal S2 Abdominal: Soft Extremities: No clubbing, No cyanosis Neuro: Normal gait, Normal speech, Strength at 5/5 X4 ext, Normal tone, Sensation intact Psych/Mental Status: Mental status NL, Mood NL Labs/Diagnostic Data Labs Test 07/28/25 21:00 07/28/25 09:48 Range/Units Urine Color Yellow Yellow Urine Clarity Clear Clear Urine pH 6.0 5.0-9.0 Urine Specific [place] 1.043 H 1.001-1.035 Urine Protein 1+ H Negative Urine Ketones 2+ H Negative Urine Blood 1+ H Negative /uL Urine Nitrite Negative Negative Urine Bilirubin Negative Negative Urine Urobilinogen Normal Negative mg/dL Urine Leukocyte Esterase Negative Negative /uL Urine RBC 6 0 - 3 /hpf Urine Microscopic WBC 2 0-3 /HPF Urine Squamous Epithelial Cells Few <5 /hpf Urine Bacteria None seen None Seen /hpf Urine Glucose Normal Normal mg/dL Urine Opiates Screen Pos NEGATIVE Urine Fentanyl Screen Neg NEGATIVE Urine Barbiturates Screen Neg NEGATIVE Urine Phencyclidine Screen Neg NEGATIVE Urine Amphetamines Screen Neg NEGATIVE Urine Benzodiazepines Screen Neg NEGATIVE Urine Cocaine Screen Neg NEGATIVE Urine Cannabinoids Screen Neg NEGATIVE White Blood Count 12.5 H 4.4-10.8 10^3/uL Red Blood Count 5.04 4.5-5.90 10^6/uL Hemoglobin 15.1 13.5-17.5 g/dL Hematocrit 45.1 41.0-53.0 % Mean Corpuscular Volume 89.5 80.0-100.0 fL Mean Corpuscular Hemoglobin 29.9 28.0-32.0 pg Mean Corpuscular Hemoglobin Concent 33.4 32.0-36.0 g/dL Red Cell Distribution Width 13.9 11.8-14.3 % Platelet Count 285 140-450 10^3/uL Mean Platelet Volume 7.4 6.9-10.8 fL Neutrophils (%) (Auto) 79.0 37.0-80.0 % Lymphocytes (%) (Auto) 9.9 L 10.0-50.0 % Monocytes (%) (Auto) 10.5 0.0-12.0 % Eosinophils (%) (Auto) 0.3 0.0-7.0 % Basophils (%) (Auto) 0.3 0.0-2.0 % Neutrophils # (Auto) 9.9 H 1.6-8.6 10 ^3/uL Lymphocytes # (Auto) 1.2 0.4-5.4 10 ^3/uL Monocytes # (Auto) 1.3 0-1.3 10 ^3/uL Eosinophils # (Auto) 0 0-0.8 10 ^3/uL Basophils # (Auto) 0 0-0.2 10 ^3/uL Nucleated Red Blood Cells 0.1 % Sodium Level 142 136-145 mmol/L Potassium Level 3.3 L 3.5-5.1 mmol/L Chloride Level 104 98-107 mmol/L Carbon Dioxide Level 27 20-31 mmol/L Anion Gap 11 5-15 Blood Urea Nitrogen 10 9-23 mg/dL Creatinine 0.95 0.700-1.30 mg/dL Glomerular Filtration Rate Calc 90 >90 mL/min BUN/Creatinine Ratio 10.5 10.0-20.0 Serum Glucose 105 74-106 mg/dL Lactic Acid Level 1.0 0.4-2.0 mmol/L Calcium Level 9.0 8.7-10.4 mg/dL Total Bilirubin 0.7 0.2-1.0 mg/dL Direct Bilirubin 0.3 <0.3 mg/dL Aspartate Amino Transferase (AST) 54 H 13-40 U/L Alanine Aminotransferase (ALT) 36 7-40 U/L Alkaline Phosphatase 122 H 46-116 U/L Total Protein 6.6 5.7-8.2 g/dL Albumin 4.0 3.2-4.8 g/dL Lipase 28 12-53 U/L CT SCAN ABD PELVIS IMPRESSION: Findings are consistent with necrotizing pancreatitis with diminished enhancement throughout the head, uncinated process, and neck. Problems(with codes): (1) Acute necrotizing pancreatitis (2) Intractable abdominal pain (3) Leukocytosis Plan/Recommendation Assessment plan Continue supportive care IV fluid hydration ;IV antibiotics, IV ppi Monitor labs , check CA 19 nine Right gallbladder ultrasound Patient is known to have cholelithiasis Possible MRCP if liver enzymes continue to rise Patient's lipase level is normal but CT has evidence of possible resolving pancreatitis Plan discussed with: Other (Lena Marshall) LINA HASSAN MD Jul 28, 2025 22:30
[2025-07-28] MEDS: MIRTAZAPINE 30 MG TAB PO SCH (23:02)
[2025-07-28] MEDS: PANTOPRAZOLE 40 MG TAB PO SCH (23:02)
[2025-07-28 23:48] VITALS: BP 111/80; PULSE 83; PULSE 85; RESP 18; TEMP 98.4; O2SAT 95; O2SAT 96
[2025-07-29] VITALS (7 sets, daily range): BP systolic 111–162; BP diastolic 80–97; PULSE 75–95; RESP 16–20; TEMP 98.1–99; O2SAT 91–93
[2025-07-29 06:21] LABS: Hematocrit 42.3 % (41.0-53.0); Hemoglobin 14.3 g/dL (13.5-17.5); Mean Corpuscular Hemoglobin 30.2 pg (28.0-32.0); Mean Corpuscular Volume 89.5 fL (80.0-100.0); Nucleated Red Blood Cells % 0.1 %
[2025-07-29 06:49] LABS: Alanine Aminotransferase 28 U/L (7-40); Alkaline Phosphatase 106 U/L (46-116); Anion Gap 13 (5-15); BUN/Creatinine Ratio 12.1 (10.0-20.0); Blood Urea Nitrogen 11 mg/dL (9-23); Carbon Dioxide 24 mmol/L (20-31); Chloride 105 mmol/L (98-107); Glucose 83 mg/dL (74-106); Sodium 142 mmol/L (136-145); Total Protein 6.4 g/dL (5.7-8.2)
[2025-07-29 06:50] LABS: Albumin 3.7 g/dL (3.2-4.8)
[2025-07-29 06:51] LABS: Bilirubin, Total 0.6 mg/dL (0.2-1.0)
[2025-07-29 06:56] LABS: Calcium 8.5 mg/dL (8.7-10.4); Potassium 3.2 mmol/L (3.5-5.1)
[2025-07-29] MEDS: LOSARTAN POTASSIUM 50 MG TAB PO SCH (09:54)
[2025-07-29] MEDS: HYDROcodone-ACET 5/325MG TAB PO PRN (09:54)
[2025-07-29] MEDS ORDERED: PATIENTS OWN MEDICATION (Losartan Potassium 1 TAB) PO SCH (10:00)
[2025-07-29] MEDS ORDERED: ALFUZOSIN HCL 10 MG PO SCH (10:00)
--- NOTE | 2025-07-29 12:33 | DVHPN2 ---
Reviewed: Care Plan, H&P, Labs, Medications, Previous Orders, Radiology Changes from previous H/P or p: No Changes Gastrointestinal: Nausea, Vomiting, Abdominal Pain Objective Vitals Vital Signs Date Time Temp Pulse Resp B/P (MAP) Pulse Ox O2 Delivery O2 Flow Rate FiO2 07/29/25 09:54 150/88 07/29/25 08:51 98.1 78 17 92 98.1 07/28/25 23:48 Room Air* 0 21 Intake/Output Intake and Output 07/29/25 07:00 Intake Total 50 ml Output Total 250 ml Balance -200 ml Intake Oral 0 ml IV Total 50 ml Output Urine Total 250 ml Stool Total 0 ml Medications Current Medications Medications Dose Ordered Sig/Efrain Route Start Time Stop Time Status Last Admin Dose Admin Meropenem 50 ml @ 17 mls/hr Q8HR IV 07/28/25 14:00 07/29/25 05:42 17 MLS/HR Sodium Chloride 1,000 ml @ 100 mls/hr Q10H IV 07/28/25 13:15 07/29/25 09:46 100 MLS/HR Acetaminophen/ Hydrocodone Bitart 1 tab Q4HP PRN PO 07/28/25 13:15 07/29/25 09:54 1 TAB Ondansetron HCl 4 mg Q4HP PRN IV 07/28/25 13:15 Acetaminophen 650 mg Q6HP PRN PO 07/28/25 13:15 Morphine Sulfate 2 mg Q4HPRN PRN IV 07/28/25 13:45 Pantoprazole Sodium 40 mg DAILY IV 07/28/25 13:15 UNV Pantoprazole Sodium 40 mg DAILY IV 07/28/25 13:30 07/28/25 14:44 40 MG Patient Own Medication 40 mg BID PO 07/28/25 22:00 UNV Patient Own Medication 1 tab DAILY PO 07/29/25 10:00 Hold Patient Own Medication 1 tab DAILY PO 07/29/25 10:00 UNV Mirtazapine 45 mg HS PO 07/28/25 22:00 07/28/25 23:02 45 MG Hydralazine HCl 10 mg Q6HP PRN IV 07/28/25 15:45 Pantoprazole Sodium 40 mg BID PO 07/28/25 22:00 07/29/25 09:47 40 MG Losartan Potassium 100 mg DAILY PO 07/29/25 10:00 07/29/25 09:54 100 MG Tamsulosin HCl 0.4 mg QPM PO 07/28/25 18:00 07/28/25 18:55 0.4 MG Laboratory Results Laboratory Tests 07/29/25 05:26 Chemistry Test 07/29/25 05:26 Albumin 3.7 g/dL (3.2-4.8) Calcium Level 8.5 mg/dL (8.7-10.4) L Total Protein 6.4 g/dL (5.7-8.2) LFT Test 07/29/25 05:26 Alanine Aminotransferase (ALT) 28 U/L (7-40) Alkaline Phosphatase 106 U/L (46-116) Aspartate Amino Transferase (AST) 28 U/L (13-40) Total Bilirubin 0.6 mg/dL (0.2-1.0) Urinalysis Test 07/28/25 21:00 Urine Color Yellow (Yellow) Urine Clarity Clear (Clear) Urine pH 6.0 (5.0-9.0) Urine Specific [place] 1.043 (1.001-1.035) Urine Protein 1+ (Negative) H Urine Ketones 2+ (Negative) H Urine Blood 1+ /uL (Negative) H Urine Nitrite Negative (Negative) Urine Bilirubin Negative (Negative) Urine Urobilinogen Normal mg/dL (Negative) Urine Leukocyte Esterase Negative /uL (Negative) Urine RBC 6 /hpf (0 - 3) Urine Microscopic WBC 2 /HPF (0-3) Urine Squamous Epithelial Cells Few /hpf (<5) Urine Bacteria None seen /hpf (None Seen) Urine Glucose Normal mg/dL (Normal) Microbiology Microbiology Date/Time Source Procedure Growth Status 07/28/25 09:52 Blood Blood Culture - Preliminary NO GROWTH AFTER 24 HOURS OF INCUBATION. Resulted Labs and/or images reviewed: Labs reviewed by me, Image(s) reviewed by me Assessment/Plan Assessment/Plan Acute necrotizing pancreatitis consult by Dr. Best Lamb appreciated, CT abdomen pelvis shows necrotizing pancreatitis lipase normal pantoprazole [place] Intractable abdominal pain Leukocytosis BPH Acute Dehydration: IV fluids Time spent 55 minutes Patient is full code Advanced care planning time 20 mts Plan discussed with: Patient Date of Service: Jul 29, 2025 Billing Provider: HELEN ROMAN MD Common Visit Codes: [id number] INP/OBS CARE(HIGH) Secondary Visit Codes: [id number] CARE PLAN 30 MINUTES HELEN ROMAN MD Jul 29, 2025 12:33
--- NOTE | 2025-07-29 15:01 | DVHPN2 ---
Progress Note - Surgical Date Seen: Jul 29, 2025 Post op day Post op day: 0 Subjective Patient reports: Feels better (Feeling better today, no pain complaints, feeling hungry and wants to eat.) Review of Systems: Deferred Objective Vital signs Vital Sign Date Time Temp Pulse Resp B/P (MAP) Pulse Ox O2 Delivery O2 Flow Rate FiO2 07/29/25 12:42 98.3 77 19 145/91 (109) 91 98.3 07/28/25 23:48 Room Air* 0 21 Total Intake and Output 07/28/25 07/28/25 07/29/25 15:00 23:00 07:00 Intake Total 50 ml Output Total 250 ml Balance -200 ml Medications Current Medications Medications Dose Ordered Sig/Efrain Route Start Time Stop Time Status Last Admin Dose Admin Meropenem 50 ml @ 17 mls/hr Q8HR IV 07/28/25 14:00 07/29/25 05:42 17 MLS/HR Sodium Chloride 1,000 ml @ 100 mls/hr Q10H IV 07/28/25 13:15 07/29/25 09:46 100 MLS/HR Acetaminophen/ Hydrocodone Bitart 1 tab Q4HP PRN PO 07/28/25 13:15 07/29/25 09:54 1 TAB Ondansetron HCl 4 mg Q4HP PRN IV 07/28/25 13:15 Acetaminophen 650 mg Q6HP PRN PO 07/28/25 13:15 Morphine Sulfate 2 mg Q4HPRN PRN IV 07/28/25 13:45 Pantoprazole Sodium 40 mg DAILY IV 07/28/25 13:15 UNV Pantoprazole Sodium 40 mg DAILY IV 07/28/25 13:30 07/28/25 14:44 40 MG Patient Own Medication 40 mg BID PO 07/28/25 22:00 UNV Patient Own Medication 1 tab DAILY PO 07/29/25 10:00 Hold Patient Own Medication 1 tab DAILY PO 07/29/25 10:00 UNV Mirtazapine 45 mg HS PO 07/28/25 22:00 07/28/25 23:02 45 MG Hydralazine HCl 10 mg Q6HP PRN IV 07/28/25 15:45 Pantoprazole Sodium 40 mg BID PO 07/28/25 22:00 07/29/25 09:47 40 MG Losartan Potassium 100 mg DAILY PO 07/29/25 10:00 07/29/25 09:54 100 MG Tamsulosin HCl 0.4 mg QPM PO 07/28/25 18:00 07/28/25 18:55 0.4 MG Laboratory Laboratory Tests 07/29/25 05:26 Test 07/29/25 05:26 Range/Units Serum Glucose 83 74-106 mg/dL Microbiology Date/Time Source Procedure Growth Status 07/29/25 00:25 Nose MRSA Screen - Final Complete 07/28/25 09:52 Blood Blood Culture - Preliminary NO GROWTH AFTER 24 HOURS OF INCUBATION. Resulted Examination: GENERAL:Normal, HEENT:Normal (No icterus), ABDOMEN:Normal (Mild distention, soft, depressible, nontender) Labs and/or images reviewed: Labs reviewed by me (No leukocytosis LFTs within normal limits) Problem List/Assessment/Plan Problems: (1) Acute necrotizing pancreatitis Assessment and Plan Mr. Oliva is a 64-year-old male who presents to the ED with a acute necrotizing pancreatitis. Pancreatitis is likely due to gallstones. CT was reviewed and shows inflammatory changes surrounding the pancreas with some pancreatic parenchyma hypoattenuation, this is consistent with gallstone pancreatitis. CT also shows gallstones within the gallbladder lumen. No fluid collections identified on CT. Given that the pancreatitis due to gallstones, patient will benefit from laparoscopic cholecystectomy. I I spoke to the patient about my recommendation, wishes cholecystectomy during this admission versus electively. I explained to the patient that if we do not remove the gallbladder, he has a 80% chance of getting another pancreatitis episode in the following 2 months, per studies. Patient is very adamant about not having surgery. After hearing this I explained to the patient that pancreatitis episodes came fall in 3 different categories mild, moderate, severe and that severe pancreatitis carry high mortality risk. Patient was still adamant about no surgical intervention. Interval: Patient feeling better today, no leukocytosis, LFTs within normal limit, patient is hungry and wants to eat. Patient is still adamant about not having surgery. From my standpoint patient can have liquids today. 1. Full liquid diet 2. Aggressive fluid hydration with a goal urine output of 1 cc/kg per hour 3. Pain and nausea control 4. Avoid morphine and pancreatitis patient is, as this is known to constrict the sphincter of Oddi 5. Out of bed and ambulate 6. No role for antibiotics unless there is infected pancreatitis, this is not the case in this patient My Orders My Orders Orders - LIN GRIMES MD Procedure Category Date Status Time Full Liq Diet DIET 07/29/25 Transmitted Lunch Plan discussed with Plan discussed with: Patient Visit Coding Surgery Date of Service if different f: Jul 29, 2025 Billing Provider: LIN GRIMES MD Surgery Visit Codes: [id number] INP/OBS CARE(HIGH) LIN GRIMES MD Jul 29, 2025 15:01
[2025-07-29] MEDS: hydrALAZINE HCL 20 MG/ML VL IV PRN (17:15)
--- NOTE | 2025-07-29 20:50 | DVHPN2 ---
Progress Note - Dictate Date Seen: Jul 29, 2025 Medical Necessity Reason Pt with a Central, PICC or Fol: No Subjective Patient seen at bedside Patient is feeling much better He denies any nausea vomiting or abdominal pain Patient is hungry and would like to advance his diet Leukocytosis has improved and liver enzymes have normalized vital signs Vital Sign Date Time Temp Pulse Resp B/P (MAP) Pulse Ox O2 Delivery O2 Flow Rate FiO2 07/29/25 17:15 157/97 07/29/25 17:00 98.4 75 17 93 98.4 07/28/25 23:48 Room Air* 0 21 Total Intake and Output 07/28/25 07/28/25 07/29/25 15:00 23:00 07:00 Intake Total 50 ml Output Total 250 ml Balance -200 ml medications Current Medications Medications Dose Ordered Sig/Efrain Route Start Time Stop Time Status Last Admin Dose Admin Meropenem 50 ml @ 17 mls/hr Q8HR IV 07/28/25 14:00 07/29/25 15:34 17 MLS/HR Sodium Chloride 1,000 ml @ 100 mls/hr Q10H IV 07/28/25 13:15 07/29/25 09:46 100 MLS/HR Acetaminophen/ Hydrocodone Bitart 1 tab Q4HP PRN PO 07/28/25 13:15 07/29/25 09:54 1 TAB Ondansetron HCl 4 mg Q4HP PRN IV 07/28/25 13:15 Acetaminophen 650 mg Q6HP PRN PO 07/28/25 13:15 Morphine Sulfate 2 mg Q4HPRN PRN IV 07/28/25 13:45 Pantoprazole Sodium 40 mg DAILY IV 07/28/25 13:15 UNV Patient Own Medication 40 mg BID PO 07/28/25 22:00 UNV Patient Own Medication 1 tab DAILY PO 07/29/25 10:00 Hold Patient Own Medication 1 tab DAILY PO 07/29/25 10:00 UNV Mirtazapine 45 mg HS PO 07/28/25 22:00 07/28/25 23:02 45 MG Hydralazine HCl 10 mg Q6HP PRN IV 07/28/25 15:45 07/29/25 17:15 10 MG Pantoprazole Sodium 40 mg BID PO 07/28/25 22:00 07/29/25 09:47 40 MG Losartan Potassium 100 mg DAILY PO 07/29/25 10:00 07/29/25 09:54 100 MG Tamsulosin HCl 0.4 mg QPM PO 07/28/25 18:00 07/29/25 17:11 0.4 MG objective General Appearance: Alert, Oriented X3, Cooperative, No acute distress HEENT: Atraumatic, PERRLA, EOMI, Mucous membr. moist/pink Respiratory: Normal air movement Cardiovascular: Regular rate, Normal S1, Normal S2 Abdominal: Soft Extremities: No clubbing, No cyanosis Neuro: Normal gait, Normal speech, Strength at 5/5 X4 ext, Normal tone, Sensation intact laboratory and microbiology Laboratory Tests 07/29/25 05:26 Test 07/29/25 05:26 Range/Units Serum Glucose 83 74-106 mg/dL CT SCAN ABD PELVIS IMPRESSION: Findings are consistent with necrotizing pancreatitis with diminished enhancement throughout the head, uncinated process, and neck. Problems(with codes): (1) Leukocytosis (2) Intractable abdominal pain (3) Acute necrotizing pancreatitis Prognosis Plan Patient has been seen by surgical consult and at this time patient is recent cholecystectomy Diet is against to full liquid I would recommend getting a right upper quadrant ultrasound for baseline to rule out cholelithiasis and evaluate for any cholecystitis Once again thank you for allowing me to participate in the care of this patient I will follow this patient with you as needed Plan discussed with: Patient LINA HASSAN MD Jul 29, 2025 20:50
--- NOTE | 2025-07-29 22:45 | DVH ---
INDICATION: pancreatitis TECHNIQUE: Multiple real-time sonographic images were obtained of the right upper quadrant. COMPARISON: None FINDINGS: The liver demonstrates normal homogeneous echotexture without focal mass lesions. The liver measures 15.2 cm. Normal hepatopetal portal venous flow identified. No evidence of pleural effusion or abdominal ascites. There is no intrahepatic or extrahepatic ductal dilatation. The common duct measures 0.5 cm. Mobile gallstones identified within the gallbladder. The gallbladder wall measures 0.2 cm and is with in normal limits. Negative sonographic robin's sign. The right kidney measures 10.5 cm. The right kidney is normal in contour, size, and shape. The echoge nicity is normal. 1.2 cm interpolar calculus. There is no hydronephrosis. The pancreas is not well visualized due to overlying bowel gas. IMPRESSION: 1. Cholelithiasis without sonographic evidence of acute cholecystitis. 2. Nonobstructing right nephrolithiasis.
[2025-07-30 01:00] VITALS: BP 163/95; PULSE 85; RESP 20; TEMP 98.5; O2SAT 92
[2025-07-30 05:00] VITALS: BP 154/95; PULSE 83; RESP 18; TEMP 98.3; O2SAT 92
--- NOTE | 2025-07-30 08:49 | DVHPN2 ---
Reviewed: Care Plan, H&P, Labs, Medications, Previous Orders, Radiology Changes from previous H/P or p: No Changes Gastrointestinal: Nausea, Vomiting, Abdominal Pain Objective Vitals Vital Signs Date Time Temp Pulse Resp B/P (MAP) Pulse Ox O2 Delivery O2 Flow Rate FiO2 07/30/25 05:00 98.3 83 18 154/95 (114) 92 98.3 07/29/25 20:00 Room Air* 0 21 Intake/Output Intake and Output 07/30/25 07:00 Intake Total 2000 ml Output Total 1450 ml Balance 550 ml Intake Oral 1900 ml IV Total 100 ml Output Urine Total 1450 ml # Bowel Movements 1 Medications Current Medications Medications Dose Ordered Sig/Efrain Route Start Time Stop Time Status Last Admin Dose Admin Meropenem 50 ml @ 17 mls/hr Q8HR IV 07/28/25 14:00 07/30/25 05:27 17 MLS/HR Sodium Chloride 1,000 ml @ 100 mls/hr Q10H IV 07/28/25 13:15 07/29/25 09:46 100 MLS/HR Acetaminophen/ Hydrocodone Bitart 1 tab Q4HP PRN PO 07/28/25 13:15 07/30/25 01:40 1 TAB Ondansetron HCl 4 mg Q4HP PRN IV 07/28/25 13:15 Acetaminophen 650 mg Q6HP PRN PO 07/28/25 13:15 Morphine Sulfate 2 mg Q4HPRN PRN IV 07/28/25 13:45 Pantoprazole Sodium 40 mg DAILY IV 07/28/25 13:15 UNV Patient Own Medication 40 mg BID PO 07/28/25 22:00 UNV Patient Own Medication 1 tab DAILY PO 07/29/25 10:00 Hold Patient Own Medication 1 tab DAILY PO 07/29/25 10:00 UNV Mirtazapine 45 mg HS PO 07/28/25 22:00 07/28/25 23:02 45 MG Hydralazine HCl 10 mg Q6HP PRN IV 07/28/25 15:45 07/29/25 17:15 10 MG Pantoprazole Sodium 40 mg BID PO 07/28/25 22:00 07/29/25 09:47 40 MG Losartan Potassium 100 mg DAILY PO 07/29/25 10:00 07/29/25 09:54 100 MG Tamsulosin HCl 0.4 mg QPM PO 07/28/25 18:00 07/29/25 17:11 0.4 MG Laboratory Results Laboratory Tests 07/29/25 05:26 Urinalysis Test 07/28/25 21:00 Urine Color Yellow (Yellow) Urine Clarity Clear (Clear) Urine pH 6.0 (5.0-9.0) Urine Specific [place] 1.043 (1.001-1.035) Urine Protein 1+ (Negative) H Urine Ketones 2+ (Negative) H Urine Blood 1+ /uL (Negative) H Urine Nitrite Negative (Negative) Urine Bilirubin Negative (Negative) Urine Urobilinogen Normal mg/dL (Negative) Urine Leukocyte Esterase Negative /uL (Negative) Urine RBC 6 /hpf (0 - 3) Urine Microscopic WBC 2 /HPF (0-3) Urine Squamous Epithelial Cells Few /hpf (<5) Urine Bacteria None seen /hpf (None Seen) Urine Glucose Normal mg/dL (Normal) Microbiology Microbiology Date/Time Source Procedure Growth Status 07/29/25 00:25 Nose MRSA Screen - Final Complete 07/28/25 09:52 Blood Blood Culture - Preliminary NO GROWTH AFTER 24 HOURS OF INCUBATION. Resulted Labs and/or images reviewed: Labs reviewed by me, Image(s) reviewed by me Assessment/Plan Assessment/Plan Acute necrotizing pancreatitis consult by Dr. Best Lamb appreciated, CT abdomen pelvis shows necrotizing pancreatitis lipase normal pantoprazole [place], Gallstones without evidence of cholecystitis surgeon Dr. Wilcox advised cholecystectomy during this admission to prevent severe episodes of pancreatitis in future, patient refused Gallstone pancreatitis Intractable abdominal pain Leukocytosis BPH Nonobstructing 3 mm right kidney stone Acute Dehydration: IV fluids Time spent 55 minutes Patient is full code Advanced care planning time 20 mts Patient was educated for more than 20 minutes about the complications of future gallstone pancreatitis; but he still refuses cholecystectomy NENA Alexandra at bedside Plan discussed with: Patient Date of Service: Jul 30, 2025 Billing Provider: HELEN ROMAN MD Common Visit Codes: [id number] INP/OBS CARE(HIGH) HELEN ROMAN MD Jul 30, 2025 08:49
[2025-07-30 09:00] VITALS: BP_SYST 145; BP_SYST 154; BP_DIAS 90; PULSE 87; PULSE 95; RESP 17; RESP 18; TEMP 98.3; O2SAT 93; O2SAT 97
--- NOTE | 2025-07-30 10:43 | DVHPN2 ---
Progress Note - Surgical Date Seen: Jul 30, 2025 Post op day Post op day: 0 Subjective Patient reports: Feels better (Patient is feeling better, no complaints of abdominal pain, full liquid diet) Review of Systems: Deferred Objective Vital signs Vital Sign Date Time Temp Pulse Resp B/P (MAP) Pulse Ox O2 Delivery O2 Flow Rate FiO2 07/30/25 09:00 98.3 95 17 154/90 (111) 93 98.3 07/29/25 20:00 Room Air* 0 21 Total Intake and Output 07/29/25 07/29/25 07/30/25 15:00 23:00 07:00 Intake Total 1450 ml 550 ml Output Total 1000 ml 450 ml Balance 450 ml 100 ml Medications Current Medications Medications Dose Ordered Sig/Efrain Route Start Time Stop Time Status Last Admin Dose Admin Meropenem 50 ml @ 17 mls/hr Q8HR IV 07/28/25 14:00 07/30/25 05:27 17 MLS/HR Sodium Chloride 1,000 ml @ 100 mls/hr Q10H IV 07/28/25 13:15 07/29/25 09:46 100 MLS/HR Acetaminophen/ Hydrocodone Bitart 1 tab Q4HP PRN PO 07/28/25 13:15 07/30/25 01:40 1 TAB Ondansetron HCl 4 mg Q4HP PRN IV 07/28/25 13:15 Acetaminophen 650 mg Q6HP PRN PO 07/28/25 13:15 Morphine Sulfate 2 mg Q4HPRN PRN IV 07/28/25 13:45 Pantoprazole Sodium 40 mg DAILY IV 07/28/25 13:15 UNV Patient Own Medication 40 mg BID PO 07/28/25 22:00 UNV Patient Own Medication 1 tab DAILY PO 07/29/25 10:00 Hold Patient Own Medication 1 tab DAILY PO 07/29/25 10:00 UNV Mirtazapine 45 mg HS PO 07/28/25 22:00 07/28/25 23:02 45 MG Hydralazine HCl 10 mg Q6HP PRN IV 07/28/25 15:45 07/29/25 17:15 10 MG Pantoprazole Sodium 40 mg BID PO 07/28/25 22:00 07/29/25 09:47 40 MG Losartan Potassium 100 mg DAILY PO 07/29/25 10:00 07/29/25 09:54 100 MG Tamsulosin HCl 0.4 mg QPM PO 07/28/25 18:00 07/29/25 17:11 0.4 MG Laboratory Laboratory Tests 07/29/25 05:26 Test 07/29/25 05:26 Range/Units Serum Glucose 83 74-106 mg/dL Microbiology Date/Time Source Procedure Growth Status 07/29/25 00:25 Nose MRSA Screen - Final Complete 07/28/25 09:52 Blood Blood Culture - Preliminary NO GROWTH AFTER 24 HOURS OF INCUBATION. Resulted Examination: GENERAL:Normal, HEENT:Normal (No icterus), ABDOMEN:Normal (Nondistended, soft, depressible, nontender) Problem List/Assessment/Plan Assessment and Plan Mr. Oliva is a 64-year-old male who presents to the ED with a acute necrotizing pancreatitis. Pancreatitis is likely due to gallstones. CT was reviewed and shows inflammatory changes surrounding the pancreas with some pancreatic parenchyma hypoattenuation, this is consistent with gallstone pancreatitis. CT also shows gallstones within the gallbladder lumen. No fluid collections identified on CT. Given that the pancreatitis due to gallstones, patient will benefit from laparoscopic cholecystectomy. I I spoke to the patient about my recommendation, wishes cholecystectomy during this admission versus electively. I explained to the patient that if we do not remove the gallbladder, he has a 80% chance of getting another pancreatitis episode in the following 2 months, per studies. Patient is very adamant about not having surgery. After hearing this I explained to the patient that pancreatitis episodes came fall in 3 different categories mild, moderate, severe and that severe pancreatitis carry high mortality risk. Patient was still adamant about no surgical intervention. Interval: Ultrasound was performed yesterday and shows multiple gallstones in the dependent position, done pericholecystic fluid, gallbladder wall 1.6 mm, CBD 5.24mm. Today I again reiterated the importance of gallbladder removal surgery due to the increased risk of having another pancreatitis episode within 2 months from discharge, is approximately 80%. Also explained that pancreatitis can be mild, moderate, or severe and in the most severe cases it can be lethal. Patient understood all the data I presented to him and still does not want surgical intervention. Patient can be advanced to a low-fat diet and assess toleration. 1. Advanced to low-fat diet 2. Pain and nausea control 3. Avoid morphine and pancreatitis patient is, as this is known to constrict the sphincter of Oddi 4. Out of bed and ambulate 5. No role for antibiotics unless there is infected pancreatitis, this is not the case in this patient 6. If patient continues to do well he could be discharged per surgical standpoint 7. I will sign off please call with any questions or concerns My Orders My Orders Orders - LIN GRIMES MD Procedure Category Date Status Time Full Liq Diet DIET 07/29/25 Transmitted Lunch Plan discussed with Plan discussed with: Patient Visit Coding Surgery Date of Service if different f: Jul 30, 2025 Billing Provider: LIN GRIMES MD Surgery Visit Codes: [id number] INP/OBS CARE(HIGH) LIN GRIMES MD Jul 30, 2025 10:43
[2025-07-30 13:00] VITALS: BP 156/88; PULSE 83; RESP 17; TEMP 98.7; O2SAT 93
[2025-07-30 17:00] VITALS: BP 136/74; PULSE 91; RESP 17; TEMP 98.7; O2SAT 92
--- NOTE | 2025-07-30 20:45 | DVHPN2 ---
Progress Note - Dictate Date Seen: Jul 30, 2025 Medical Necessity Reason Pt with a Central, PICC or Fol: No Subjective Patient seen at bedside Patient is feeling much better He denies any nausea vomiting or abdominal pain Patient is hungry and would like to advance his diet Leukocytosis has improved and liver enzymes have normalized vital signs Vital Sign Date Time Temp Pulse Resp B/P (MAP) Pulse Ox O2 Delivery O2 Flow Rate FiO2 07/30/25 17:00 98.7 91 17 136/74 (94) 92 98.7 07/30/25 08:00 Room Air* 0 21 Total Intake and Output 07/29/25 07/29/25 07/30/25 15:00 23:00 07:00 Intake Total 1450 ml 550 ml Output Total 1000 ml 450 ml Balance 450 ml 100 ml medications Current Medications Medications Dose Ordered Sig/Efrain Route Start Time Stop Time Status Last Admin Dose Admin Meropenem 50 ml @ 17 mls/hr Q8HR IV 07/28/25 14:00 07/30/25 13:46 17 MLS/HR Sodium Chloride 1,000 ml @ 100 mls/hr Q10H IV 07/28/25 13:15 07/30/25 13:57 100 MLS/HR Acetaminophen/ Hydrocodone Bitart 1 tab Q4HP PRN PO 07/28/25 13:15 07/30/25 13:48 1 TAB Ondansetron HCl 4 mg Q4HP PRN IV 07/28/25 13:15 Acetaminophen 650 mg Q6HP PRN PO 07/28/25 13:15 Morphine Sulfate 2 mg Q4HPRN PRN IV 07/28/25 13:45 Pantoprazole Sodium 40 mg DAILY IV 07/28/25 13:15 UNV Patient Own Medication 40 mg BID PO 07/28/25 22:00 UNV Patient Own Medication 1 tab DAILY PO 07/29/25 10:00 Hold Patient Own Medication 1 tab DAILY PO 07/29/25 10:00 UNV Mirtazapine 45 mg HS PO 07/28/25 22:00 07/28/25 23:02 45 MG Hydralazine HCl 10 mg Q6HP PRN IV 07/28/25 15:45 07/30/25 13:54 10 MG Pantoprazole Sodium 40 mg BID PO 07/28/25 22:00 07/29/25 09:47 40 MG Losartan Potassium 100 mg DAILY PO 07/29/25 10:00 07/30/25 11:05 100 MG Tamsulosin HCl 0.4 mg QPM PO 07/28/25 18:00 07/30/25 18:14 0.4 MG objective General Appearance: Alert, Oriented X3, Cooperative, No acute distress HEENT: Atraumatic, PERRLA, EOMI, Mucous membr. moist/pink Respiratory: Normal air movement Cardiovascular: Regular rate, Normal S1, Normal S2 Abdominal: Soft Extremities: No clubbing, No cyanosis Neuro: Normal gait, Normal speech, Strength at 5/5 X4 ext, Normal tone, Sensation intact laboratory and microbiology Laboratory Tests 07/29/25 05:26 Test 07/29/25 05:26 Range/Units Serum Glucose 83 74-106 mg/dL GB USG IMPRESSION: 1. Cholelithiasis without sonographic evidence of acute cholecystitis. 2. Nonobstructing right nephrolithiasis. Problems(with codes): (1) Leukocytosis (2) Intractable abdominal pain (3) Acute necrotizing pancreatitis (4) Cholelithiasis Prognosis Plan Advance to soft diet Monitor labs Patient does not want surgical intervention or cholecystectomy ; he is going to try natural management Discharge planning in a.m. as per hospitalist if the patient is tolerating diet and is pain-free Patient was given my contact information to follow up in my office as needed Plan discussed with: Patient, Other (Nurse Ibrahima) LINA HASSAN MD Jul 30, 2025 20:45
--- NOTE | 2025-07-31 09:10 | DVHDS2 ---
Discharge Summary Date of Admission Jul 28, 2025 at 13:12 Date of Discharge: Jul 31, 2025 Admitting Diagnosis Acute abdominal pain Wounds: None Labs/Diagnostic Data: Laboratory Results Test 07/29/25 05:26 07/28/25 21:00 07/28/25 09:48 White Blood Count 10.5 10^3/uL (4.4-10.8) Red Blood Count 4.72 10^6/uL (4.5-5.90) Hemoglobin 14.3 g/dL (13.5-17.5) Hematocrit 42.3 % (41.0-53.0) Mean Corpuscular Volume 89.5 fL (80.0-100.0) Mean Corpuscular Hemoglobin 30.2 pg (28.0-32.0) Mean Corpuscular Hemoglobin Concent 33.8 g/dL (32.0-36.0) Red Cell Distribution Width 14.1 % (11.8-14.3) Platelet Count 276 10^3/uL (140-450) Mean Platelet Volume 7.4 fL (6.9-10.8) Neutrophils (%) (Auto) 74.0 % (37.0-80.0) Lymphocytes (%) (Auto) 11.4 % (10.0-50.0) Monocytes (%) (Auto) 13.3 % (0.0-12.0) Eosinophils (%) (Auto) 1.0 % (0.0-7.0) Basophils (%) (Auto) 0.3 % (0.0-2.0) Neutrophils # (Auto) 7.8 10 ^3/uL (1.6-8.6) Lymphocytes # (Auto) 1.2 10 ^3/uL (0.4-5.4) Monocytes # (Auto) 1.4 10 ^3/uL (0-1.3) Eosinophils # (Auto) 0.1 10 ^3/uL (0-0.8) Basophils # (Auto) 0 10 ^3/uL (0-0.2) Nucleated Red Blood Cells 0.1 % Sodium Level 142 mmol/L (136-145) Potassium Level 3.2 mmol/L (3.5-5.1) Chloride Level 105 mmol/L (98-107) Carbon Dioxide Level 24 mmol/L (20-31) Anion Gap 13 (5-15) Blood Urea Nitrogen 11 mg/dL (9-23) Creatinine 0.91 mg/dL (0.700-1.30) Glomerular Filtration Rate Calc 95 mL/min (>90) BUN/Creatinine Ratio 12.1 (10.0-20.0) Serum Glucose 83 mg/dL (74-106) Calcium Level 8.5 mg/dL (8.7-10.4) Total Bilirubin 0.6 mg/dL (0.2-1.0) Aspartate Amino Transferase (AST) 28 U/L (13-40) Alanine Aminotransferase (ALT) 28 U/L (7-40) Alkaline Phosphatase 106 U/L (46-116) Total Protein 6.4 g/dL (5.7-8.2) Albumin 3.7 g/dL (3.2-4.8) Urine Color Yellow (Yellow) Urine Clarity Clear (Clear) Urine pH 6.0 (5.0-9.0) Urine Specific [place] 1.043 (1.001-1.035) Urine Protein 1+ (Negative) Urine Ketones 2+ (Negative) Urine Blood 1+ /uL (Negative) Urine Nitrite Negative (Negative) Urine Bilirubin Negative (Negative) Urine Urobilinogen Normal mg/dL (Negative) Urine Leukocyte Esterase Negative /uL (Negative) Urine RBC 6 /hpf (0 - 3) Urine Microscopic WBC 2 /HPF (0-3) Urine Squamous Epithelial Cells Few /hpf (<5) Urine Bacteria None seen /hpf (None Seen) Urine Glucose Normal mg/dL (Normal) Urine Opiates Screen Pos (NEGATIVE) Urine Fentanyl Screen Neg (NEGATIVE) Urine Barbiturates Screen Neg (NEGATIVE) Urine Phencyclidine Screen Neg (NEGATIVE) Urine Amphetamines Screen Neg (NEGATIVE) Urine Benzodiazepines Screen Neg (NEGATIVE) Urine Cocaine Screen Neg (NEGATIVE) Urine Cannabinoids Screen Neg (NEGATIVE) Lactic Acid Level 1.0 mmol/L (0.4-2.0) Direct Bilirubin 0.3 mg/dL (<0.3) Lipase 28 U/L (12-53) CA 19-9 Antigen <2 U/mL (0-35) Other Laboratory Tests 07/29/25 05:26 Brief Hx & Hospital Course: 64-year-old male with a history of BPH kidney stone came in for abdominal pain CT abdomen pelvis without contrast showed necrotizing pancreatitis but lipase were normal seen by GI Dr. N Adonis started with the pantoprazole [place]. Dehydration treated with the IV fluids CT abdomen pelvis without contrast also showed gallstones without evidence of cholecystitis. Surgeon Dr. Wilcox was consulted advised cholecystectomy during this admission but patient refused. He was also advised that he is at high risk for severe gallstone pancreatitis in future but he is still refused. While awaiting further stabilization the patient decided to leave AMA and left AMA. Surgeon Dr. Wilcox cleared for discharge. General condition satisfactory at the time of discharge Consults/Reason for consult GI Dr. Best Lamb Surgeon Dr. Wilcox Operations or Procedures CT abdomen pelvis without contrast Condition at Discharge: Fair Final Diagnosis/Problems List Acute necrotizing pancreatitis consult by Dr. Best Lamb appreciated, CT abdomen pelvis shows necrotizing pancreatitis lipase normal pantoprazole [place], Gallstones without evidence of cholecystitis surgeon Dr. Wilcox advised cholecystectomy during this admission to prevent severe episodes of pancreatitis in future, patient refused Gallstone pancreatitis Intractable abdominal pain Leukocytosis BPH Nonobstructing 3 mm right kidney stone Acute Dehydration: IV fluids Discharge Disposition: AMA Discharge Instruct/Medications Diet comment: Not applicable Patient left AMA Activity comment: Not applicable Patient left AMA Follow Up/Referral: Not applicable Patient left AMA Scheduled Alfuzosin Hydrochloride (Alfuzosin Hcl Er), 1 TAB PO DAILY, (Reported) Losartan Potassium (Losartan Potassium), 1 TAB PO DAILY, (Reported) Mirtazapine (Remeron), HS, (Reported) [Pantoprazole Sodium Sesquihydr], 40 MG PO BID Miscellaneous Medications Mirtazapine (Mirtazapine Oral Disintegrating Tablet), TAB PO, (Reported) 39 (Time taken for discharge summary 39 minutes) Discharge Statement: "Patient was advised to return to the ER or call 911 if any headaches, dizziness, shortness of breath, chest pain, abdominal pain, bleeding, fevers, or worsening of medical condition. Patient was counseled about treatment plan, medications, possible side effects, patientverbalized understanding. All questions were answered to the best of my ability. This discharge took greater then 30 minutes in planning, reviewing documentation, counseling the patient, and discussing with other team members." ASSESSMENT ASSESSMENT Hospital Course Improved Assessment Date of Service: Jul 31, 2025 Billing Provider: HELEN ROMAN MD Common Visit Codes: [id number] INP/OBS CARE(HIGH) HELEN ROMAN MD Jul 31, 2025 09:10
== END 2025-07-30 19:25 | disposition left against medical advice (07) | DRG 439 ==
LOC: ER 09:24 → OVERFLOW 13:12 → CENTRAL 23:45
PROVIDERS: ADMIT Family Medicine; ATTEND Family Medicine
DX: K85.11 Biliary acute pancreatitis with uninfected necrosis (principal); J90 Pleural effusion, not elsewhere classified; J98.11 Atelectasis; I10 Essential (primary) hypertension; N20.0 Calculus of kidney; K21.9 Gastro-esophageal reflux disease without esophagitis; N40.0 Benign prostatic hyperplasia without lower urinary tract symptoms; E87.6 Hypokalemia; E86.0 Dehydration; Z53.29 Procedure and treatment not carried out because of patient's decision for other reasons; R74.01 Elevation of levels of liver transaminase levels; D72.829 Elevated white blood cell count, unspecified; K80.20 Calculus of gallbladder without cholecystitis without obstruction; Z88.3 Allergy status to other anti-infective agents; Z91.02 Food additives allergy status; Z91.048 Other nonmedicinal substance allergy status; Z90.81 Acquired absence of spleen; Z90.49 Acquired absence of other specified parts of digestive tract; Z82.49 Family history of ischemic heart disease and other diseases of the circulatory system; Z80.42 Family history of malignant neoplasm of prostate; Z87.442 Personal history of urinary calculi; Z87.828 Personal history of other (healed) physical injury and trauma
CPT/HCPCS: 36415; 74177; 76705; 80048; 80053; 80076; 80307; 81001; 83605; 83690; 85025; 86301; 87040; 87081; 93005; G0378; J2185; J2405; J2470